=== PATIENT | male | born 1930 | race Caucasian/White ===

== ENCOUNTER 2018-05-12 10:28 | Inpatient (IN) | payer MEDICARE, OTHER ==
[~2018-05-12] VITALS: Ht 170.2 cm; Wt 75.3 kg
[2018-05-12 10:55] LABS: BASOPHILS % (AUTO) 0.2 % (0-1); EOSINOPHILS # (AUTO) 0.3 X10'3 (0-0.9); EOSINOPHILS % (AUTO) 2.4 % (0-6); HEMATOCRIT 33.4 % (42.0-52.0); HEMOGLOBIN 10.6 g/dl (14.0-17.9); LYMPHOCYTES # (AUTO) 1.2 X10'3 (1.1-4.8); LYMPHOCYTES % (AUTO) 8.9 % (21-51); MEAN CORPUSCULAR HGB CONC 31.8 % (33.0-36.5); MEAN CORPUSCULAR VOLUME 81.9 FL (78-98); MEAN PLATELET VOLUME 8.2 FL (7.4-10.4); MONOCYTES # (AUTO) 0.9 X10'3 (0-0.9); MONOCYTES % (AUTO) 7.1 % (2-12); NEUTROPHILS # (AUTO) 10.6 X10'3 (1.8-7.7); NEUTROPHILS % (AUTO) 81.4 % (42-75); PLATELET COUNT 260 X10'3 (140-440); RED BLOOD COUNT 4.07 X10'6 (4.70-6.10); RED CELL DISTRIBUTION WIDTH 14.6 % (11.5-14.5)
[2018-05-12 10:58] LABS: INR 1.1 INR; PARTIAL THROMBOPLASTIN TIME 27 SECONDS (22-32); PROTHROMBIN TIME 10.9 SECONDS (9.0-12.0)
[2018-05-12 11:00] LABS: ALANINE AMINOTRANSFERASE 22 U/L (12-78); ALBUMIN 2.6 G/DL (3.4-5.0); ALBUMIN/GLOBULIN RATIO 0.6 (1.1-1.5); ALKALINE PHOSPHATASE 50 IU/L (46-116); ANION GAP 7 (8-16); ASPARTATE AMINO TRANSFERASE 11 U/L (10-37); BILIRUBIN,TOTAL 0.4 MG/DL (0.1-1.0); BLOOD UREA NITROGEN 26 MG/DL (7-18); BUN/CREATININE RATIO 25.5 (5.4-32.0); CALCIUM 10.3 MG/DL (8.5-10.1); CHLORIDE 106 MMOL/L (99-107); CREATININE 1.02 MG/DL (0.60-1.10); GLUCOSE 164 MG/DL (70-104); POTASSIUM 4.1 MMOL/L (3.5-5.1); SODIUM 142 MMOL/L (135-145); TOTAL CARBON DIOXIDE 28.6 MMOL/L (24-32); TOTAL PROTEIN 6.7 G/DL (6.4-8.2); eGFR 69 ML/MIN
[2018-05-12] MEDS ORDERED: adenosine 3mg/ml 2ml vial IV ONE (11:05)
[2018-05-12 11:07] LABS: MAGNESIUM 2.1 MG/DL (1.5-2.4)
[2018-05-12] MEDS ORDERED: ipratropium/albuterol 3ml nebule NEB ONE (11:15)
[2018-05-12] MEDS ORDERED: diltiazem-D5W 125mg/125ml 125 ML IV ONE (11:34)
[2018-05-12] MEDS ORDERED: diltiazem 5mg/ml 5ml inj. IV ONE (11:35)
[2018-05-12] MEDS ORDERED: morphine 2 MG/ML inj. syringe IV PRN (11:50)
[2018-05-12] MEDS ORDERED: mag hydrox/Alum hydrox/simeth 30ml oral suspension PO PRN (11:50)
[2018-05-12] MEDS ORDERED: acetaminophen 325mg tablet PO PRN (11:50)
[2018-05-12] MEDS ORDERED: ondansetron/PF 4mg/2ml inj IV PRN (11:50)
[2018-05-12] MEDS ORDERED: magnesium hydroxide 30ml (MOM) UD suspension PO PRN (11:50)
[2018-05-12] MEDS ORDERED: amiodarone/D5 360MG/200ML BAG 200 ML IV SCH (13:05)
[2018-05-12] MEDS ORDERED: LIDOcaine 0.5% (5mg/ml) 50ml vial ONE (15:30)
[2018-05-12 15:58] VITALS: BP 121/61
[2018-05-12 16:04] VITALS: BP 112/45
[2018-05-12 16:33] VITALS: BP 116/43
[2018-05-12] MEDS ORDERED: DORZ10DR10 OP (17:33)
[2018-05-12] MEDS ORDERED: MELO-100 PO (17:33)
[2018-05-12] MEDS ORDERED: FINA5TAB11 PO (17:34)
[2018-05-12] MEDS ORDERED: BUDE10.2 INH (17:34)
[2018-05-12] MEDS ORDERED: AMLO2.5T2 PO (17:35)
[2018-05-12] MEDS ORDERED: GABA-532 PO (17:36)
[2018-05-12] MEDS ORDERED: LOSA25TA96 PO (17:36)
[2018-05-12] MEDS ORDERED: ATOR20TA PO (17:37)
[2018-05-12] MEDS ORDERED: METF500T PO (17:37)
[2018-05-12] MEDS ORDERED: TERA2CAP4 PO (17:38)
[2018-05-12 19:00] VITALS: BP 122/59
[2018-05-12] MEDS ORDERED: enoxaparin 40mg/0.4ml syringe SUBCUT SCH (20:00)
[2018-05-12 21:00] VITALS: BP 110/48
[2018-05-12 23:00] VITALS: BP 119/59
[2018-05-13] VITALS (8 sets, daily range): BP systolic 116–147; BP diastolic 54–67
[2018-05-13 05:16] LABS: BASOPHILS % (AUTO) 0.2 % (0-1); EOSINOPHILS # (AUTO) 0.4 X10'3 (0-0.9); EOSINOPHILS % (AUTO) 3.3 % (0-6); HEMATOCRIT 30.7 % (42.0-52.0); HEMOGLOBIN 9.7 g/dl (14.0-17.9); LYMPHOCYTES # (AUTO) 1.2 X10'3 (1.1-4.8); LYMPHOCYTES % (AUTO) 10.6 % (21-51); MEAN CORPUSCULAR HEMOGLOBIN 26.1 PG (27.0-31.0); MEAN CORPUSCULAR HGB CONC 31.7 % (33.0-36.5); MEAN CORPUSCULAR VOLUME 82.2 FL (78-98); MEAN PLATELET VOLUME 8.4 FL (7.4-10.4); MONOCYTES % (AUTO) 8.8 % (2-12); NEUTROPHILS % (AUTO) 77.1 % (42-75); PLATELET COUNT 242 X10'3 (140-440); RED BLOOD COUNT 3.74 X10'6 (4.70-6.10); RED CELL DISTRIBUTION WIDTH 14.5 % (11.5-14.5); WHITE BLOOD COUNT 11.6 X10'3 (4.5-11.0)
[2018-05-13 05:24] LABS: ALBUMIN 2.3 G/DL (3.4-5.0); ANION GAP 6 (8-16); BLOOD UREA NITROGEN 21 MG/DL (7-18); BUN/CREATININE RATIO 21.9 (5.4-32.0); CALCIUM 9.9 MG/DL (8.5-10.1); CHLORIDE 107 MMOL/L (99-107); CREATININE 0.96 MG/DL (0.60-1.10); GLUCOSE 126 MG/DL (70-104); POTASSIUM 4.2 MMOL/L (3.5-5.1); SODIUM 143 MMOL/L (135-145); eGFR 74 ML/MIN
[2018-05-13] MEDS ORDERED: enoxaparin 40mg/0.4ml syringe SUBCUT SCH (08:00)
[2018-05-13] MEDS: enoxaparin 40mg/0.4ml syringe SUBCUT SCH ×2 (08:06→22:02)
[2018-05-13] MEDS: enoxaparin 30mg/0.3ml syringe SUBCUT SCH ×2 (08:06→22:01)
[2018-05-13] MEDS ORDERED: dextrose 50%-water 50ml dispensing syringe IV PRN ×2 (10:05)
[2018-05-13] MEDS ORDERED: insulin Lispro (HumaLOG) vial - multi-dose SQ SCH (10:05)
[2018-05-13] MEDS ORDERED: glucagon, human recombinant 1mg kit SUBCUT PRN (10:05)
[2018-05-13] MEDS ORDERED: MESSAGE TO PHARMACY PO ONE (10:05)
[2018-05-13] MEDS ORDERED: dextrose ORAL solution 15 GM/59 ML bottle PO PRN ×2 (10:05)
[2018-05-13] MEDS: carVEDilol 3.125mg tablet PO SCH ×2 (10:24→22:00)
[2018-05-13] MEDS: furosemide 20 MG/2 ML vial IV SCH ×2 (10:24→21:59)
[2018-05-13] MEDS ORDERED: albuterol 2.5 MG/3 ML nebule NEB PRN (10:55)
[2018-05-13] MEDS: finasteride 5mg tablet PO SCH (11:02)
[2018-05-13] MEDS: gabapentin 300mg capsule PO SCH ×2 (13:48→22:02)
[2018-05-13] MEDS ORDERED: amLODIPine 5mg tablet PO SCH (20:00)
[2018-05-13] MEDS: naproxen 375mg tablet PO SCH (20:00)
[2018-05-13] MEDS: Terazosin 1mg capsule PO SCH (21:00)
[2018-05-13] MEDS: insulin glargine (Lantus) pen - multi-dose SQ SCH (21:00)
[2018-05-13] MEDS: dorzolamide/timolol (Cosopt) ophthalmic drops 10ml bottle EACHEYE SCH (21:59)
[2018-05-13] MEDS: atorvastatin 20mg tablet PO SCH (22:02)
[2018-05-13] MEDS: BUDESONIDE 0.25 MG/2 ML AMPUL.NEB IH SCH (22:26)
[2018-05-13] MEDS: albuterol 2.5 MG/3 ML nebule NEB SCH (22:26)
[2018-05-14 03:00] VITALS: BP 117/70
[2018-05-14 03:11] LABS: BASOPHILS % (AUTO) 0.4 % (0-1); EOSINOPHILS # (AUTO) 0.4 X10'3 (0-0.9); EOSINOPHILS % (AUTO) 3.2 % (0-6); HEMATOCRIT 31.6 % (42.0-52.0); HEMOGLOBIN 10.1 g/dl (14.0-17.9); LYMPHOCYTES # (AUTO) 1.5 X10'3 (1.1-4.8); LYMPHOCYTES % (AUTO) 13.3 % (21-51); MEAN CORPUSCULAR HEMOGLOBIN 25.8 PG (27.0-31.0); MEAN CORPUSCULAR HGB CONC 31.8 % (33.0-36.5); MEAN CORPUSCULAR VOLUME 81.1 FL (78-98); MONOCYTES % (AUTO) 8.2 % (2-12); NEUTROPHILS # (AUTO) 8.7 X10'3 (1.8-7.7); NEUTROPHILS % (AUTO) 74.9 % (42-75); PLATELET COUNT 276 X10'3 (140-440); RED CELL DISTRIBUTION WIDTH 14.4 % (11.5-14.5); WHITE BLOOD COUNT 11.6 X10'3 (4.5-11.0)
[2018-05-14 03:23] LABS: ALBUMIN 2.4 G/DL (3.4-5.0); ANION GAP 4 (8-16); BLOOD UREA NITROGEN 16 MG/DL (7-18); BUN/CREATININE RATIO 18.2 (5.4-32.0); CALCIUM 10.1 MG/DL (8.5-10.1); CHLORIDE 106 MMOL/L (99-107); CREATININE 0.88 MG/DL (0.60-1.10); GLUCOSE 121 MG/DL (70-104); POTASSIUM 3.8 MMOL/L (3.5-5.1); SODIUM 142 MMOL/L (135-145); eGFR 82 ML/MIN
[2018-05-14] MEDS: albuterol 2.5 MG/3 ML nebule NEB SCH ×6 (03:58→23:35)
[2018-05-14 06:00] VITALS: BP 126/64
[2018-05-14] MEDS: furosemide 20 MG/2 ML vial IV SCH ×2 (07:47→19:56)
[2018-05-14] MEDS: carVEDilol 3.125mg tablet PO SCH ×2 (07:47→19:57)
[2018-05-14] MEDS: losartan 50mg tablet PO SCH (07:48)
[2018-05-14] MEDS: gabapentin 300mg capsule PO SCH ×3 (07:48→20:43)
[2018-05-14] MEDS: naproxen 375mg tablet PO SCH (07:49)
[2018-05-14] MEDS: finasteride 5mg tablet PO SCH (07:49)
[2018-05-14] MEDS: dorzolamide/timolol (Cosopt) ophthalmic drops 10ml bottle EACHEYE SCH ×2 (07:51→19:59)
[2018-05-14] MEDS: enoxaparin 40mg/0.4ml syringe SUBCUT SCH (07:56)
[2018-05-14] MEDS: BUDESONIDE 0.25 MG/2 ML AMPUL.NEB IH SCH ×2 (08:00→19:17)
[2018-05-14] MEDS: enoxaparin 30mg/0.3ml syringe SUBCUT SCH (08:04)
[2018-05-14 11:00] VITALS: BP 104/56
[2018-05-14 15:00] VITALS: BP 117/64
[2018-05-14 18:00] VITALS: BP 104/55
[2018-05-14] MEDS: apixaban 5mg tablet PO SCH (19:56)
[2018-05-14] MEDS: insulin glargine (Lantus) pen - multi-dose SQ SCH (20:42)
[2018-05-14] MEDS: atorvastatin 20mg tablet PO SCH (20:43)
[2018-05-14] MEDS: Terazosin 1mg capsule PO SCH (20:44)
[2018-05-14 22:00] VITALS: BP 96/57
[2018-05-15 02:00] VITALS: BP 126/41
[2018-05-15] MEDS: albuterol 2.5 MG/3 ML nebule NEB SCH ×6 (03:12→23:03)
[2018-05-15 04:56] LABS: BASOPHILS % (AUTO) 0.2 % (0-1); EOSINOPHILS # (AUTO) 0.4 X10'3 (0-0.9); EOSINOPHILS % (AUTO) 3.4 % (0-6); HEMATOCRIT 31.5 % (42.0-52.0); LYMPHOCYTES # (AUTO) 1.5 X10'3 (1.1-4.8); LYMPHOCYTES % (AUTO) 13.3 % (21-51); MEAN CORPUSCULAR HEMOGLOBIN 26.1 PG (27.0-31.0); MEAN CORPUSCULAR HGB CONC 31.8 % (33.0-36.5); MEAN PLATELET VOLUME 8.2 FL (7.4-10.4); MONOCYTES # (AUTO) 1.1 X10'3 (0-0.9); MONOCYTES % (AUTO) 9.6 % (2-12); NEUTROPHILS # (AUTO) 8.5 X10'3 (1.8-7.7); NEUTROPHILS % (AUTO) 73.5 % (42-75); PLATELET COUNT 275 X10'3 (140-440); RED BLOOD COUNT 3.85 X10'6 (4.70-6.10); RED CELL DISTRIBUTION WIDTH 14.9 % (11.5-14.5); WHITE BLOOD COUNT 11.6 X10'3 (4.5-11.0)
[2018-05-15 05:22] LABS: ALBUMIN 2.4 G/DL (3.4-5.0); ANION GAP 6 (8-16); BLOOD UREA NITROGEN 23 MG/DL (7-18); BUN/CREATININE RATIO 21.9 (5.4-32.0); CALCIUM 9.5 MG/DL (8.5-10.1); CHLORIDE 104 MMOL/L (99-107); CREATININE 1.05 MG/DL (0.60-1.10); GLUCOSE 120 MG/DL (70-104); POTASSIUM 3.6 MMOL/L (3.5-5.1); SODIUM 143 MMOL/L (135-145); TOTAL CARBON DIOXIDE 32.6 MMOL/L (24-32); eGFR 67 ML/MIN
[2018-05-15 06:00] VITALS: BP 115/44
[2018-05-15] MEDS: furosemide 20 MG/2 ML vial IV SCH ×2 (07:17→20:48)
[2018-05-15] MEDS: carVEDilol 3.125mg tablet PO SCH ×2 (07:17→20:49)
[2018-05-15] MEDS: gabapentin 300mg capsule PO SCH ×3 (07:17→20:49)
[2018-05-15] MEDS: finasteride 5mg tablet PO SCH (07:18)
[2018-05-15] MEDS: apixaban 5mg tablet PO SCH ×2 (07:18→20:49)
[2018-05-15] MEDS: losartan 50mg tablet PO SCH (07:20)
[2018-05-15] MEDS: BUDESONIDE 0.25 MG/2 ML AMPUL.NEB IH SCH ×2 (08:00→19:50)
[2018-05-15] MEDS: dorzolamide/timolol (Cosopt) ophthalmic drops 10ml bottle EACHEYE SCH ×2 (08:00→20:48)
[2018-05-15 11:00] VITALS: BP 106/58
[2018-05-15 15:00] VITALS: BP 107/50
[2018-05-15] MEDS: MESSAGE TO NURSING PO NR (18:30)
[2018-05-15 19:00] VITALS: BP 132/56
[2018-05-15] MEDS: Terazosin 1mg capsule PO SCH (20:48)
[2018-05-15] MEDS: atorvastatin 20mg tablet PO SCH (20:49)
[2018-05-15] MEDS: insulin glargine (Lantus) pen - multi-dose SQ SCH (20:56)
[2018-05-15 23:00] VITALS: BP 102/50
[2018-05-15] MEDS ORDERED: albuterol 2.5 MG/3 ML nebule ONE (23:00)
[2018-05-16 03:00] VITALS: BP 95/56
[2018-05-16] MEDS: albuterol 2.5 MG/3 ML nebule NEB SCH ×5 (04:00→20:00)
[2018-05-16 05:24] LABS: BASOPHILS % (AUTO) 0.3 % (0-1); EOSINOPHILS # (AUTO) 0.4 X10'3 (0-0.9); EOSINOPHILS % (AUTO) 3.6 % (0-6); HEMATOCRIT 31.9 % (42.0-52.0); HEMOGLOBIN 10.2 g/dl (14.0-17.9); LYMPHOCYTES # (AUTO) 1.2 X10'3 (1.1-4.8); LYMPHOCYTES % (AUTO) 10.6 % (21-51); MEAN CORPUSCULAR HEMOGLOBIN 26.2 PG (27.0-31.0); MEAN CORPUSCULAR VOLUME 81.8 FL (78-98); MEAN PLATELET VOLUME 8.1 FL (7.4-10.4); MONOCYTES % (AUTO) 8.8 % (2-12); NEUTROPHILS % (AUTO) 76.7 % (42-75); PLATELET COUNT 272 X10'3 (140-440); RED BLOOD COUNT 3.89 X10'6 (4.70-6.10); RED CELL DISTRIBUTION WIDTH 14.2 % (11.5-14.5); WHITE BLOOD COUNT 11.7 X10'3 (4.5-11.0)
[2018-05-16 05:32] LABS: ALBUMIN 2.4 G/DL (3.4-5.0); ANION GAP 3 (8-16); BLOOD UREA NITROGEN 23 MG/DL (7-18); BUN/CREATININE RATIO 22.1 (5.4-32.0); CALCIUM 9.7 MG/DL (8.5-10.1); CHLORIDE 105 MMOL/L (99-107); CREATININE 1.04 MG/DL (0.60-1.10); GLUCOSE 140 MG/DL (70-104); POTASSIUM 3.7 MMOL/L (3.5-5.1); SODIUM 142 MMOL/L (135-145); TOTAL CARBON DIOXIDE 34.5 MMOL/L (24-32); eGFR 68 ML/MIN
[2018-05-16 06:00] VITALS: BP 114/51
[2018-05-16] MEDS: gabapentin 300mg capsule PO SCH ×3 (08:22→22:05)
[2018-05-16] MEDS: apixaban 5mg tablet PO SCH ×2 (08:24→22:05)
[2018-05-16] MEDS: carVEDilol 3.125mg tablet PO SCH ×2 (08:27→22:05)
[2018-05-16] MEDS: finasteride 5mg tablet PO SCH (08:27)
[2018-05-16] MEDS: losartan 50mg tablet PO SCH (08:27)
[2018-05-16] MEDS: furosemide 20 MG/2 ML vial IV SCH ×2 (08:28→22:04)
[2018-05-16] MEDS: BUDESONIDE 0.25 MG/2 ML AMPUL.NEB IH SCH ×2 (08:36→19:31)
[2018-05-16] MEDS: dorzolamide/timolol (Cosopt) ophthalmic drops 10ml bottle EACHEYE SCH ×2 (08:36→22:05)
[2018-05-16] MEDS: MESSAGE TO NURSING PO NR (10:00)
[2018-05-16 11:00] VITALS: BP 105/55
[2018-05-16 15:00] VITALS: BP 125/55
[2018-05-16 18:00] VITALS: BP 122/57
[2018-05-16] MEDS: insulin glargine (Lantus) pen - multi-dose SQ SCH (21:00)
[2018-05-16 22:00] VITALS: BP 132/61
[2018-05-16] MEDS: Terazosin 1mg capsule PO SCH (22:05)
[2018-05-16] MEDS: atorvastatin 20mg tablet PO SCH (22:05)
[2018-05-17 02:00] VITALS: BP 131/56
[2018-05-17] MEDS: albuterol 2.5 MG/3 ML nebule NEB SCH ×3 (03:44→07:00)
[2018-05-17 05:27] LABS: BASOPHILS % (AUTO) 0.3 % (0-1); EOSINOPHILS # (AUTO) 0.4 X10'3 (0-0.9); EOSINOPHILS % (AUTO) 3.4 % (0-6); HEMATOCRIT 32.7 % (42.0-52.0); HEMOGLOBIN 10.4 g/dl (14.0-17.9); LYMPHOCYTES # (AUTO) 1.3 X10'3 (1.1-4.8); LYMPHOCYTES % (AUTO) 10.9 % (21-51); MEAN CORPUSCULAR HEMOGLOBIN 26.3 PG (27.0-31.0); MEAN CORPUSCULAR HGB CONC 31.9 % (33.0-36.5); MEAN CORPUSCULAR VOLUME 82.6 FL (78-98); MEAN PLATELET VOLUME 8.4 FL (7.4-10.4); MONOCYTES # (AUTO) 1.1 X10'3 (0-0.9); MONOCYTES % (AUTO) 9.4 % (2-12); PLATELET COUNT 265 X10'3 (140-440); RED BLOOD COUNT 3.96 X10'6 (4.70-6.10); RED CELL DISTRIBUTION WIDTH 14.1 % (11.5-14.5); WHITE BLOOD COUNT 11.9 X10'3 (4.5-11.0)
[2018-05-17 05:46] LABS: ALBUMIN 2.4 G/DL (3.4-5.0); ANION GAP 4 (8-16); BLOOD UREA NITROGEN 24 MG/DL (7-18); BUN/CREATININE RATIO 24.5 (5.4-32.0); CALCIUM 9.6 MG/DL (8.5-10.1); CHLORIDE 105 MMOL/L (99-107); CREATININE 0.98 MG/DL (0.60-1.10); GLUCOSE 135 MG/DL (70-104); POTASSIUM 3.7 MMOL/L (3.5-5.1); SODIUM 143 MMOL/L (135-145); TOTAL CARBON DIOXIDE 34.2 MMOL/L (24-32); eGFR 72 ML/MIN
[2018-05-17] MEDS: BUDESONIDE 0.25 MG/2 ML AMPUL.NEB IH SCH (07:00)
[2018-05-17 07:16] VITALS: BP 117/57
[2018-05-17] MEDS: carVEDilol 3.125mg tablet PO SCH (09:25)
[2018-05-17] MEDS: dorzolamide/timolol (Cosopt) ophthalmic drops 10ml bottle EACHEYE SCH (09:25)
[2018-05-17] MEDS: gabapentin 300mg capsule PO SCH (09:25)
[2018-05-17] MEDS: furosemide 20 MG/2 ML vial IV SCH (09:26)
[2018-05-17] MEDS: finasteride 5mg tablet PO SCH (09:26)
[2018-05-17] MEDS: apixaban 5mg tablet PO SCH (09:26)
[2018-05-17] MEDS: losartan 50mg tablet PO SCH (09:43)
== END 2018-05-17 10:20 | DRG 291 ==
LOC: ER 10:28 → ED HOLD 11:47 → PCU 3S 16:45
PROVIDERS: ADMIT Emergency Medicine; ATTEND Family Medicine
PROC: 0W993ZX Drainage of Right Pleural Cavity, Percutaneous Approach, Diagnostic (ICD-10-PCS; principal; 2018-05-12)
PROC: BW241ZZ Computerized Tomography (CT Scan) of Chest and Abdomen using Low Osmolar Contrast (ICD-10-PCS; 2018-05-15)
DX: I11.0 Hypertensive heart disease with heart failure (principal); I50.21 Acute systolic (congestive) heart failure; J96.00 Acute respiratory failure, unspecified whether with hypoxia or hypercapnia; J90 Pleural effusion, not elsewhere classified; E11.42 Type 2 diabetes mellitus with diabetic polyneuropathy; E78.5 Hyperlipidemia, unspecified; G47.33 Obstructive sleep apnea (adult) (pediatric); R91.8 Other nonspecific abnormal finding of lung field; I48.91 Unspecified atrial fibrillation; J44.9 Chronic obstructive pulmonary disease, unspecified; Z98.1 Arthrodesis status; Z90.49 Acquired absence of other specified parts of digestive tract; Z88.1 Allergy status to other antibiotic agents; Z79.899 Other long term (current) drug therapy; Z87.891 Personal history of nicotine dependence
CPT/HCPCS: 32555; 36415; 71045; 71046; 71260; 80048; 80053; 82948; 83036; 83735; 83880; 84484; 85025; 85610; 85730; 87015; 87070; 87075; 87102; 88108; 88305; 88342; 93005; 93306; 94640; 94760; 96374; 97116; 97161; 97530; 99285; G0378; J0153; J1650; J1815; J1940; J2001; J3490

== ENCOUNTER 2018-05-23 01:35 | Emergency (ER) | payer MEDICARE, OTHER ==
[~2018-05-23] VITALS: Ht 172.7 cm; Wt 69.1 kg
[~2018-05-23 01:35] MED LIST: AMLO2.5T2 PO; ATOR20TA PO; BUDE10.2 INH; DORZ10DR10 OP; FINA5TAB11 PO; GABA-532 PO; LOSA25TA96 PO; MELO-100 PO; TERA2CAP4 PO
[2018-05-23] MEDS ORDERED: methylPREDNISolone sod succ 125mg/2ml vial IV ONE (01:40)
[2018-05-23] MEDS ORDERED: ipratropium 0.5 MG/2.5ML nebule IH ONE (01:40)
[2018-05-23] MEDS ORDERED: magnesium 2GM in 50ml NS 50 ML IV ONE (01:40)
[2018-05-23] MEDS ORDERED: albuterol 2.5 MG/3 ML nebule CONTNEB PRN (01:40)
[2018-05-23 01:56] LABS: BASOPHILS # (AUTO) 0.1 X10'3 (0-0.2); BASOPHILS % (AUTO) 0.4 % (0-1); EOSINOPHILS # (AUTO) 0.7 X10'3 (0-0.9); EOSINOPHILS % (AUTO) 4.8 % (0-6); HEMATOCRIT 33.9 % (42.0-52.0); HEMOGLOBIN 10.8 g/dl (14.0-17.9); LYMPHOCYTES # (AUTO) 1.4 X10'3 (1.1-4.8); LYMPHOCYTES % (AUTO) 10.5 % (21-51); MEAN CORPUSCULAR HGB CONC 31.7 % (33.0-36.5); MONOCYTES % (AUTO) 7.8 % (2-12); NEUTROPHILS # (AUTO) 10.3 X10'3 (1.8-7.7); NEUTROPHILS % (AUTO) 76.5 % (42-75); PLATELET COUNT 290 X10'3 (140-440); RED BLOOD COUNT 4.14 X10'6 (4.70-6.10); RED CELL DISTRIBUTION WIDTH 14.1 % (11.5-14.5); WHITE BLOOD COUNT 13.5 X10'3 (4.5-11.0)
[2018-05-23] MEDS ORDERED: ALBU2.5V13 NEB (02:00)
[2018-05-23] MEDS ORDERED: CARV3.12 PO (02:00)
[2018-05-23] MEDS ORDERED: APIX5TAB3 PO (02:00)
[2018-05-23] MEDS ORDERED: POLY17PO10 PO (02:00)
[2018-05-23] MEDS ORDERED: POTA20TA19 PO (02:00)
[2018-05-23 02:05] LABS: ALANINE AMINOTRANSFERASE 60 U/L (12-78); ALBUMIN 2.6 G/DL (3.4-5.0); ALBUMIN/GLOBULIN RATIO 0.6 (1.1-1.5); ALKALINE PHOSPHATASE 60 IU/L (46-116); ANION GAP 4 (8-16); ASPARTATE AMINO TRANSFERASE 28 U/L (10-37); BILIRUBIN,TOTAL 0.3 MG/DL (0.1-1.0); BLOOD UREA NITROGEN 22 MG/DL (7-18); CALCIUM 9.8 MG/DL (8.5-10.1); CHLORIDE 104 MMOL/L (99-107); GLUCOSE 155 MG/DL (70-104); POTASSIUM 4.1 MMOL/L (3.5-5.1); SODIUM 140 MMOL/L (135-145); TOTAL CARBON DIOXIDE 32.1 MMOL/L (24-32); TOTAL PROTEIN 6.9 G/DL (6.4-8.2); eGFR 71 ML/MIN
[2018-05-23 02:12] LABS: MAGNESIUM 2.1 MG/DL (1.5-2.4)
[2018-05-23] MEDS ORDERED: albuterol 2.5 MG/3 ML nebule NEB ONE (04:05)
[2018-05-23 06:06] VITALS: BP 125/54
== END 2018-05-23 06:09 | disposition home or self-care (01) ==
LOC: ER 01:35
DX: J44.1 Chronic obstructive pulmonary disease with (acute) exacerbation (principal); R91.8 Other nonspecific abnormal finding of lung field; E11.9 Type 2 diabetes mellitus without complications; I50.9 Heart failure, unspecified; Z88.1 Allergy status to other antibiotic agents; Z79.899 Other long term (current) drug therapy
CPT/HCPCS: 36415; 71045; 80053; 83735; 83880; 84145; 84484; 85025; 93005; 94640; 94644; 94645; 94760; 96365; 96366; 96375; 99285; J2930; J3475

== ENCOUNTER 2018-07-10 18:45 | Inpatient (IN) | payer MEDICARE, OTHER | END 2018-07-17 17:15 | LOC: SUR 3N 07-14 05:54 → ER 18:45 → PCU 3S 07-16 10:30 → CICU 2S 07-14 20:30 → ED HOLD 07-11 07:54 → SUR 3N 07-11 13:20 | DX: A41.9 Sepsis, unspecified organism (principal); J18.9 Pneumonia, unspecified organism; E43 Unspecified severe protein-calorie malnutrition; J96.00 Acute respiratory failure, unspecified whether with hypoxia or hypercapnia; J90 Pleural effusion, not elsewhere classified; R04.2 Hemoptysis; I48.0 Paroxysmal atrial fibrillation ==